=== PATIENT | female | born 1965 | race Caucasian/White ===

== ENCOUNTER → 2016-07-20 | Outpatient (CLI) | payer BC ==
--- NOTE | 2016-07-21 06:15 | US ---
EXAMINATION TYPE: US transvaginal DATE OF EXAM: 07/20/2016 4:31 PM COMPARISON: No previous CLINICAL HISTORY: R87.619 ENDOMETRIAL CELLS OUT OF PHASE WITH LMP. Abnormal pap smear, 2, par a 2 TECHNIQUE: Transvaginal (TV) Date of LMP: 07/11/16 EXAM MEASUREMENTS: Uterus: 8.4 x 4.6 x 5.8 cm Endometrial Stripe: 0.7 cm Right Ovary: not seen Left Ovary: not seen TECHNOLOGIST IMPRESSION: 1. Uterus: anteverted, heterogeneous echogenicity with 3.5 x 2.7 x 3.1cm hypoechoic area right mid u terus, multiple small nabothian cysts 2. Endometrium: appears slightly thickened for patient's LMP, 0.5cm echogenic focus within fundal po rtion of endo 3. Right Ovary: not seen due to overlying peristalsing bowel 4. Left Ovary: not seen due to overlying peristalsing bowel 5. Bilateral Adnexa: wnl 6. Posterior cul-de-sac: wnl Uterus is markedly heterogeneous in appearance. The right aspect of uterus is heterogeneous hypoechoi c 3.5 x 2.7 cm lesion suspicious for fibroid. Endometrium is not seen with certainty on images saved and thus cannot be accurately characterized as abnormally thickened. A 5 mm hyperechoic central struc ture could reflect endometrial polyp or central dystrophic calcification. No free fluid is seen in pe lvic cul-de-sac. Neither ovary is clearly seen. No suspicious adnexal masses are noted. IMPRESSION: Suboptimal evaluation of endometrium. Probable uterine fibroid disease. Consider MRI chanelle elation.
== END | disposition home or self-care (01) ==
LOC: RADUSWWP 16:09
PROVIDERS: ATTEND Obstetrics & Gynecology
DX: R87.619 Unspecified abnormal cytological findings in specimens from cervix uteri (principal)
CPT/HCPCS: 76830

== ENCOUNTER → 2016-08-25 | Outpatient (CLI) | payer BC ==
--- NOTE | 2016-08-25 14:01 | CT ---
EXAMINATION TYPE: CT abdomen pelvis w con DATE OF EXAM: 08/25/2016 7:57 AM COMPARISON: NONE INDICATION: Recent diagnosis of endometrial CA DLP: 591.9 mGycm, Automated exposure control for dose reduction was used. CONTRAST: 100 mL of Omnipaque 300. Study performed with Oral Contrast TECHNIQUE: Axial images were obtained from above the diaphragm to the pubic rami in the axial plane a t 5 mm thick sections. Reconstructed images are reviewed on the computer in the coronal plane. FINDINGS: Limited CT sections are obtained the lung bases. The lung bases are clear. CT ABDOMEN: Liver: Normal Spleen: Normal Pancreas: Normal Adrenal glands: The adrenal glands are normal. Gallbladder: Surgically absent Kidneys: No masses are evident. No hydronephrosis is present. No cysts are present. Delayed images were obtained through the kidneys, which remain unremarkable. Aorta: Normal Inferior vena cava: Normal. No retrocrural adenopathy is evident. No suspicious adenopathy in the periaortic or retrocaval region is evident. Suspicious lymphadenopathy at the level of the renal veins is not identified. No iliac c marissa or pelvic adenopathy is evident. CT PELVIS: Loops of bowel within the abdomen and pelvis are normal. There are loops of bowel which are incom pletely distended or lack oral contrast limiting their evaluation. Appendix: Not well visualized. What may be the appendix is normal. No suspicious inflammatory changes or dilated tubular structures are evident. No free fluid is evident. Urinary bladder: Normal. Genitourinary structures: There is a 1.4 cm right ovarian cyst. Exophytic fibroid on the right side o f the uterus is likely present. This could be the patient's reported uterine cancer. Osseous structures: No suspicious lytic or sclerotic lesions. IMPRESSIONS: 1. Uterine fibroid. This mass density could be related to the patient's endometrial cancer. 2. No suspicious metastatic disease evident.
== END | disposition home or self-care (01) ==
LOC: RADCTMAIN 07:22
PROVIDERS: ATTEND Obstetrics & Gynecology
DX: C54.1 Malignant neoplasm of endometrium (principal); D25.9 Leiomyoma of uterus, unspecified
CPT/HCPCS: 74177; Q9967

== ENCOUNTER → 2017-07-12 | Outpatient (CLI) | payer BC ==
--- NOTE | 2017-07-13 13:34 | MM ---
Reason for exam: screening (asymptomatic). Last mammogram was performed 3 years and 10 months ago. History: Family history of breast cancer in paternal aunt at age 65. Taking hormonal contraceptives for 18 years beginning at age 18. Physical Findings: A clinical breast exam by your physician is recommended on an annual basis and results should be correlated with mammographic findings. MG Screening Mammo w CAD Bilateral CC and MLO view(s) were taken. Prior study comparison: September 16, 2013, bilateral MG screening mammo w CAD. March 14, 2011, bilateral digital screening mammo w/CAD. The breast tissue is heterogeneously dense. This may lower the sensitivity of mammography. No significant changes when compared with prior studies. ASSESSMENT: Benign, BI-RAD 2 RECOMMENDATION: Routine screening mammogram of both breasts in 1 year.
== END | disposition home or self-care (01) ==
LOC: RADMAMWWP 12:51
PROVIDERS: ATTEND Obstetrics & Gynecology
DX: Z12.31 Encounter for screening mammogram for malignant neoplasm of breast (principal)
CPT/HCPCS: 77067

== ENCOUNTER → 2017-07-28 | Outpatient (CLI) | payer BC ==
--- NOTE | 2017-07-28 11:42 | XR ---
EXAMINATION TYPE: XR chest 2V DATE OF EXAM: 07/28/2017 COMPARISON: NONE HISTORY: C54.1 Malignant neoplasm of endometrium TECHNIQUE: Frontal and lateral views of the chest are obtained. FINDINGS: There is no focal air space opacity. No evidence for pneumothorax. No pleural effusion. The cardiac silhouette size is within normal limits. The osseous structures are grossly intact. IMPRESSION: 1. No acute cardiopulmonary process.
--- NOTE | 2017-07-28 13:01 | CT ---
EXAMINATION TYPE: CT abdomen pelvis w con DATE OF EXAM: 07/28/2017 COMPARISON: 08/25/2016 HISTORY: Malignant neoplasm of endometrium CT DLP: 614.4 mGycm CONTRAST: CT scan of the abdomen and pelvis is performed with Oral Contrast and with IV Contrast, patient injec belle with 100 mL of Isovue 300. FINDINGS: LUNG BASES-: No visible nodule. No infiltrate. LIVER/GB: There is mild hepatic steatosis. The gallbladder surgically absent. No solid space occupyi ng hepatic lesion. Stable tiny cyst left hepatic lobe measuring less than 1 cm. Biliary tree is of no rmal caliber. PANCREAS: No inflammation. No distinct mass. SPLEEN: No splenic enlargement. No lesion seen. ADRENALS: No nodule. No thickening. KIDNEYS/BLADDER: No hydronephrosis. No nephrolithiasis. No distinct renal mass. Urinary bladder g rossly unremarkable. BOWEL: Normal appendix. Normal bowel caliber. No inflammation. GENITAL ORGANS: Total hysterectomy changes identified. No evidence for recurrent or residual mass wi thin the pelvis. No evidence for free fluid. LYMPH NODES: No greater than 1cm abdominal or pelvic lymph nodes are appreciated. AORTA: No significant abnormality. OSSEOUS STRUCTURES: No significant abnormality is seen. OTHER: No significant additional abnormality is seen. IMPRESSION: 1. No evidence for metastatic disease at this time. 2. Mild hepatic steatosis.
== END | disposition home or self-care (01) ==
LOC: RADCTMAIN 10:45
PROVIDERS: ATTEND Obstetrics & Gynecology
DX: Z12.31 Encounter for screening mammogram for malignant neoplasm of breast (principal); C54.1 Malignant neoplasm of endometrium; K76.0 Fatty (change of) liver, not elsewhere classified
CPT/HCPCS: 71046; 74177; Q9967

== ENCOUNTER → 2020-06-01 | Outpatient (CLI) | payer BC ==
--- NOTE | 2020-06-01 12:54 | BD ---
EXAMINATION TYPE: Axial Bone Density DATE OF EXAM: 06/01/2020 COMPARISON: NONE CLINICAL HISTORY: 55 YR OLD FEMALE...ICD-10 CODE: N95.1 POST MENOPAUSAL Height: 66.4 Weight: 180 FRAX RISK QUESTIONS: NOTHING TO NOTE HERE RISK FACTORS HISTORY OF: Postmenopausal woman: YES, AT AGE 53, TOTAL HYST FOR UTERINE CANCER Hyperparathyroidism: NO Adrenal Insufficiency: NO MEDICATIONS: Additional Medications: EFFEXOR Additional History: HX OF UTERINE CA, TOTAL HYST. EXAM MEASUREMENTS: Bone mineral densitometry was performed using the [employer] System. Bone mineral density as measured about the Lumbar spine is: ----- L1-L4(G/cm2): 1.425 T Score Values are as follows: ----- L1: 1.5 ----- L2: 1.9 ----- L3: 2.0 ----- L4: 2.5 ----- L1-L4: 2.0 Bone mineral density HER FIRST BONE DENSITY....BASELINE STUDY Bone mineral density about the R hip (g/cm2): 0.858 Bone mineral density about the L hip (g/cm2): 0.880 T Score values are as follows: -----R Neck: -1.2 -----L Neck: -1.3 -----R Total: -1.2 -----L Total: -1.0 Bone mineral density BASELINE STUDY FRAX%s: THERE IS A 5.9% CHANCE FOR A MAJOR OSTEOPOROTIC FX AND A 0.4% FOR HIP.....PROBABILITY FOR F X IN 10 YRS TIME IMPRESSION: Osteopenia right femoral neck NOTE: T-SCORE=SD OF THE YOUNG ADULT MEAN.
--- NOTE | 2020-06-02 09:43 | MM ---
Reason for exam: screening (asymptomatic). Last mammogram was performed 2 years and 11 months ago. History: Patient is postmenopausal and has history of other cancer at age 53. Family history of breast cancer in paternal aunt at age 65. Taking hormonal contraceptives for 18 years beginning at age 18. Physical Findings: A clinical breast exam by your physician is recommended on an annual basis and results should be correlated with mammographic findings. MG Screening Mammo w CAD Bilateral CC and MLO view(s) were taken. Prior study comparison: July 12, 2017, bilateral MG screening mammo w CAD. September 16, 2013, bilateral MG screening mammo w CAD. The breast tissue is heterogeneously dense. This may lower the sensitivity of mammography. There is no discrete abnormality. No significant changes when compared with prior studies. ASSESSMENT: Negative, BI-RAD 1 RECOMMENDATION: Routine screening mammogram of both breasts in 1 year.
== END ==
LOC: RADMAMWWP 08:58
PROVIDERS: ATTEND Obstetrics & Gynecology
DX: Z12.31 Encounter for screening mammogram for malignant neoplasm of breast (principal); M85.851 Other specified disorders of bone density and structure, right thigh
CPT/HCPCS: 77067; 77080

== ENCOUNTER → 2022-09-13 | Outpatient (CLI) | payer BC ==
[2022-09-13 16:35] LABS: HCT 46.5 % (37.2-46.3); HGB 14.6 g/dL (12.0-15.0); MCH 29.4 pg (27.0-32.0); MCHC 31.4 g/dL (32.0-37.0); MCV 93.6 fL (80.0-97.0); NRBC Per 100 WBC 0 /100 WBCS (0.0-0.0); Platelet Count 378 X 10*3/uL (140-440); RBC 4.97 X 10*6/uL (4.10-5.20); RDW 12.9 % (11.5-14.5); WBC 5.58 X 10*3/uL (4.50-10.00)
[2022-09-13 16:38] LABS: ALT 22 U/L (8-44); AST 19 U/L (13-35); African American GFR (CKD) 104.8 (60.0-200.0); Albumin 4.8 g/dL (3.8-4.9); Albumin/Globulin Ratio 1.86 (1.60-3.17); Alkaline Phosphatase 111 U/L (41-126); BUN/Creat Ratio 22.94 Ratio (12.00-20.00); Calcium 10.2 mg/dL (8.7-10.3); Carbon Dioxide 27.6 mmol/L (20.0-27.5); Chloride 104 mmol/L (96-109); Chol/HDL Ratio 3.96 Ratio; Globulin 2.6 g/dL (1.6-3.3); Glucose 92 mg/dL (70-110); LDL Cholesterol,Calculated 156.8 mg/dL (0.0-131.0); Non-African American GFR(CKD) 90.4 (60.0-200.0); Potassium 4.7 mmol/L (3.5-5.5); Sodium 144 mmol/L (135-145); Total Protein 7.4 g/dL (6.2-8.2); VLDL Calculation 18.12 mg/dL (5.00-40.00)
== END | disposition home or self-care (01) ==
LOC: LABWHC1 08:44
PROVIDERS: ATTEND Obstetrics & Gynecology
DX: Z13.220 Encounter for screening for lipoid disorders (principal); Z13.29 Encounter for screening for other suspected endocrine disorder; R53.83 Other fatigue
CPT/HCPCS: 36415; 80053; 80061; 83036; 84439; 84443; 84479; 85027

== ENCOUNTER → 2023-04-27 | Outpatient (CLI) | payer BC ==
--- NOTE | 2023-05-01 14:19 | MM ---
Reason for Exam: Screening (asymptomatic). Last mammogram was performed 2 year(s) and 10 month(s) ago. Patient History: Menarche at age 14. First Full-Term at age 27. Left ovary removed at age 53. Right ovary removed at age 53. Hysterectomy at age 53. Postmenopausal. Other cancer, age 53. Currently using Hormonal Contraceptives, beginning at age 18 for 18 years. Paternal aunt had breast cancer, age 65. Risk Values: Nuzhat 5 year model risk: 1.4%. NCI Lifetime model risk: 8.7%. Prior Study Comparison: 09/16/2013 Bilateral Screening Mammogram, [facility]. 07/12/2017 Bilateral Screening Mammogram, [facility]. 06/01/2020 Bilateral Screening Mammogram, [facility]. Tissue Density: There are scattered fibroglandular densities. Findings: Analyzed By CAD. Asymmetric density superior right MLO view middle depth is more defined. This may represent superimposition shadow but further evaluation is recommended. Otherwise, no significant change. Overall Assessment: Incomplete: need additional imaging evaluation, BI-RAD 0 Management: Special View Mammogram of the right breast. Diagnostic Breast Ultrasound of the right breast. . Electronically signed and approved by: Krystal Savage M.D. Radiologist
== END | disposition home or self-care (01) ==
LOC: RADMAMWWP 15:55
PROVIDERS: ATTEND Obstetrics & Gynecology
DX: Z12.31 Encounter for screening mammogram for malignant neoplasm of breast (principal); Z80.3 Family history of malignant neoplasm of breast; Z78.0 Asymptomatic menopausal state
CPT/HCPCS: 77067

== ENCOUNTER → 2023-05-10 | Outpatient (CLI) | payer BC ==
--- NOTE | 2023-05-10 14:04 | MM ---
Reason for Exam: Additional evaluation requested from abnormal screening. Last screening mammogram was performed less than 1 month ago. Patient History: Menarche at age 14. First Full-Term at age 27. Left ovary removed at age 53. Right ovary removed at age 53. Hysterectomy at age 53. Postmenopausal. Other cancer, age 53. Currently using Hormonal Contraceptives, beginning at age 18 for 18 years. Paternal aunt had breast cancer, age 65. Risk Values: Nuzhat 5 year model risk: 1.4%. NCI Lifetime model risk: 8.7%. Tissue Density: Right: There are scattered fibroglandular densities. Findings: Analyzed By CAD. Under compression no persistent suspicious nodularity is evident. No abnormal spiculated or lobular masses evident. Compression views appear unremarkable. Mediolateral view appears unremarkable. Overall Assessment: Probably benign, BI-RAD 3 Management: Diagnostic Mammogram of the right breast in 6 months. A negative mammogram report should not preclude additional follow up of suspicious palpable abnormalities. Patient should continue monthly self breast exam. A clinical breast exam by your physician is recommended on an annual basis and results should be correlated with mammographic findings. Electronically signed and approved by: Ilia Yang D.O. Radiologis
== END | disposition home or self-care (01) ==
LOC: RADMAMWWP 13:25
PROVIDERS: ATTEND Obstetrics & Gynecology
DX: R92.321 Mammographic fibroglandular density, right breast (principal); Z78.0 Asymptomatic menopausal state; Z80.3 Family history of malignant neoplasm of breast
CPT/HCPCS: 77061; 77065

== ENCOUNTER → 2024-08-07 | Outpatient (CLI) | payer BC ==
--- NOTE | 2024-08-07 09:00 | MM ---
Reason for Exam: Screening (asymptomatic). Last mammogram was performed 1 year(s) and 4 month(s) ago. Patient History: Menarche at age 14. First Full-Term at age 27. Left ovary removed at age 53. Right ovary removed at age 53. Hysterectomy at age 53. Postmenopausal. Other cancer, age 53. Currently using Hormonal Contraceptives, beginning at age 18 for 18 years. Paternal aunt had breast cancer, age 65. Risk Values: Nuzhat 5 year model risk: 1.5%. NCI Lifetime model risk: 8.5%. Prior Study Comparison: 06/01/2020 Bilateral Screening Mammogram, [facility]. 04/27/2023 Bilateral MG screening mammo w CAD, [facility]. 05/10/2023 Right MG 3D work up w/cad RT, [facility]. Tissue Density: There are scattered areas of fibroglandular density. Findings: Analyzed By CAD. Areas of asymmetric density on the right are unchanged. There is no suspicious group of microcalcifications or new suspicious mass in either breast. Overall Assessment: Benign, BI-RAD 2 Management: Screening Mammogram of both breasts in 1 year. Patient should continue monthly self-breast exams. A clinical breast exam by your physician is recommended on an annual basis. This exam should not preclude additional follow-up of suspicious palpable abnormalities. Note on Nuzhat scores and lifetime risk: 1. A Nuzhat score greater than 3% is considered moderate risk. If this is the case, consider specialist referral to assess eligibility for a risk reducing agent. 2. If overall lifetime risk for the development of breast cancer is 20% or higher, the patient may qualify for future screening with alternating mammogram and breast MRI. [facility], , 08/07/2024 8:54 AM. Electronically signed and approved by: Krystal Savage M.D. Radiologist
== END | disposition home or self-care (01) ==
LOC: RADMAMWWP 07:02
PROVIDERS: ATTEND Family Medicine
DX: Z12.31 Encounter for screening mammogram for malignant neoplasm of breast (principal); R92.323 Mammographic fibroglandular density, bilateral breasts; Z78.0 Asymptomatic menopausal state; Z80.3 Family history of malignant neoplasm of breast; Z79.3 Long term (current) use of hormonal contraceptives
CPT/HCPCS: 77063; 77067

== ENCOUNTER 2024-08-28 11:00 | Day surgery (SDC) | payer BC ==
[2024-08-28] MEDS: LACTATED RINGERS 1,000 ML BAG IV STA (11:35)
[2024-08-28] MEDS: IV FLUID CONTINUATION 1,000 ML IV ONE (11:35)
[2024-08-28] MEDS: LIDOCAINE 1% (10MG/ML) FOR IV START INTRADERMA STA (11:36)
[2024-08-28 11:49] VITALS: RESP 16; TEMP 97.2
[2024-08-28] MEDS ORDERED: PROPOFOL 10 MG/ML 20 ML VIAL IV ONE (12:17)
--- NOTE | 2024-08-28 12:35 | P.PCN ---
Date of Procedure: 08/28/24 Procedure(s) Performed: BRIEF HISTORY: Patient is a 59-year-old pleasant white female scheduled for an elective colonoscopy as a part of screening for colon cancer/positive Cologuard. PROCEDURE PERFORMED: Colonoscopy with snare polypectomy. PREOPERATIVE DIAGNOSIS: Screening for colon cancer/positive Cologuard. IV sedation per Anesthesia. PROCEDURE: After informed consent was obtained, the patient, was brought into the endoscopy unit. IV sedation was administered by Anesthesia under continuous monitoring. Digital rectal examination was normal. Initially the Olympus CF-160 flexible video colonoscope was then inserted in the rectum, gradually advanced into the cecum without any difficulty. Careful examination was performed as the scope was gradually being withdrawn. Ileocecal valve and the appendiceal orifice were visualized and appeared normal. Prep was excellent. Mucosa of the cecum, ascending colon appeared normal. The transverse colon there was a 5 mm polyp removed by cold snare polypectomy., transverse colon, descending colon, appeared normal. The sigmoid colon there was a 1 cm polyp removed by snare polypectomy. Rest of the sigmoid colon, and rectum appeared normal. Retroflexion was performed in the rectum and no lesions were seen. The patient tolerated the procedure well. IMPRESSION: 5 mm transverse colon polyp status post snare polypectomy 1 cm sigmoid colon polyp status post polypectomy RECOMMENDATIONS: Findings of this examination were discussed with the patient as well as his family.. She was advised to follow with the biopsy results. If the biopsy reveals adenoma she can have repeat colonoscopy in 3 years.
[2024-08-28 12:55] VITALS: BP 110/73; PULSE 73
== END 2024-08-28 13:19 ==
LOC: ORWHC2ENDO 11:00
PROVIDERS: ATTEND Internal Medicine Gastroenterology
DX: Z12.11 Encounter for screening for malignant neoplasm of colon (principal); D12.5 Benign neoplasm of sigmoid colon; D12.3 Benign neoplasm of transverse colon
CPT/HCPCS: 88305; 45385; J2704